=== PATIENT | female | born 1960 | race Caucasian/White ===

== ENCOUNTER 2020-04-24 12:24 | Observation (INO) | payer BC ==
[2020-04-13 15:53] VITALS: BMI 36.8
--- NOTE | 2020-04-23 16:10 | HP ---
HISTORY AND PHYSICAL REASON FOR ADMISSION: Surgery scheduled for 04/24/2020 HISTORY OF PRESENT ILLNESS: Deena Calvo is a 59-year-old patient seen with symptomatic right knee osteoarthritis. We discussed options for treatment. She elected to proceed with right total knee arthroplasty. Consent was obtained. Medical clearance by Dr. Tesfaye. PAST MEDICAL HISTORY: Hypothyroidism, hypertension, asthma. PAST SURGICAL HISTORY: Right knee arthroscopy with ACL reconstruction, hysterectomy, section. MEDICATIONS: Levothyroxine, Plavix, hydrochlorothiazide, oxybutynin, Ultram. ALLERGIES: None. SOCIAL HISTORY: She denies current tobacco use. PHYSICAL EXAMINATION: Evaluation of the right knee: Range of motion is -2 to 115. Tenderness medial joint line. Crepitus medial patellofemoral compartments. Pain with patellofemoral compression. Ligaments stable. Hip rotation without pain. Distal neurovascular exam is intact. RADIOGRAPHS: Right knee radiographs reveal severe osteoarthritic changes. IMPRESSION: 1. Right knee osteoarthritis. 2. Hypertension. 3. Hypothyroidism. 4. Asthma. PLAN: Right total knee arthroplasty. MMODL / IJN: [id number] /
[~2020-04-24 12:24] MED LIST: LIDOCAINE 1% (10MG/ML) FOR IV START INTRADERMA PRN; MIDAZOLAM 2 MG/2 ML VIAL IV PRN; VANCOMYCIN 1,500 MG in SODIUM CHLORIDE 0.9% 250 ML IVPB ONE; fentaNYL (PF) 50 MCG/ML 2 ML AMP IV PRN
[2020-04-24] MEDS: LACTATED RINGERS 1,000 ML IV SCH ×3 (12:48→21:56)
[2020-04-24] MEDS ORDERED: MIDAZOLAM 2 MG/2 ML VIAL IV ONE (13:14)
[2020-04-24] MEDS ORDERED: fentaNYL (PF) 50 MCG/ML 2 ML AMP IV ONE (13:14)
[2020-04-24] MEDS ORDERED: ACETAMINOPHEN TAB 500 MG TAB ONE (13:35)
[2020-04-24] MEDS ORDERED: ACETAMINOPHEN TAB 500 MG TAB PO ONE (13:37)
[2020-04-24] MEDS ORDERED: MELOXICAM 7.5 MG TAB PO ONE (13:37)
--- NOTE | 2020-04-24 14:07 | P.ANPRN ---
Procedure Note - Anesthesia - Nerve Block Performed Right Adductor Canal Infusion Time Out Performed: Yes (1313) Date of Procedure: 04/24/20 Procedure Start Time: 13:14 Procedure Stop Time: 13:24 Location of Patient: PreOp Indication: Acute Post-Operative Pain, Analgesia, Requested by Surgeon Specifically requested for management of pain by DrMichael: Sergio Moon Sedation Type: Sedate with meaningful contact maintained Preparation: Sterile Prep, Sterile Dressing Position: Supine Catheter: Indwelling Needle Types: Ronnie Needle Gauge: 20 Ultrasound used to visualize needle placement: Yes Ultrasound used to observe medication spread: Yes Injectate: 0.5% Ropivacaine (see comment for volume) (0.5% ropivacaine 20 mL with 10 mg dexamethasone) Blood Aspirated: No Pain Paresthesia on Injection Noted: No Resistance on Injection: Normal Image Stored and Saved: Yes
[2020-04-24] MEDS ORDERED: ROPIVACAINE 246.25 MG, EPINEPHrine 0.5 MG, KETOROLAC 30 MG, cloNIDine HCL/PF 80 MCG, WA... MISCELLANE ONE ×5 (15:14)
[2020-04-24] MEDS ORDERED: TRANEXAMIC ACID 1,000 MG/10 ML VIAL ONE (15:19)
[2020-04-24] MEDS ORDERED: MIDAZOLAM 2 MG/2 ML VIAL ONE (15:19)
[2020-04-24] MEDS ORDERED: LIDOCAINE 1% INJ 10MG/ML (20 ML MDV) ONE (15:19)
[2020-04-24] MEDS ORDERED: PROPOFOL 10 MG/ML 20 ML VIAL IV ONE (15:19)
[2020-04-24] MEDS ORDERED: DEXAMETHASONE SOD PHOSPHATE 10 MG/ML 1 ML VIAL ONE (15:19)
[2020-04-24] MEDS ORDERED: SODIUM CHLORIDE 0.9% 100 ML BAG ONE (15:19)
[2020-04-24] MEDS ORDERED: SUCCINYLCHOLINE CHLORIDE 100 MG/5 ML SYR IV ONE (15:19)
[2020-04-24] MEDS ORDERED: fentaNYL (PF) 50 MCG/ML 50 ML VIAL ONE (15:19)
[2020-04-24] MEDS ORDERED: HYDROmorphone (PF) 1 MG/ML ONE (15:19)
[2020-04-24] MEDS ORDERED: ONDANSETRON 4 MG/2 ML VIAL ONE (15:19)
[2020-04-24] MEDS: TRANEXAMIC ACID 1,000 MG in SODIUM CHLORIDE 0.9% 100 ML IVPB SCH (15:30)
[2020-04-24] MEDS: ROPIVACAINE 0.2%-NS ON-Q PUMP 1,090 MG, EMPTY PAIN BALL 1 EACH MISCELLANE PRN ×2 (16:17→18:19)
[2020-04-24] MEDS ORDERED: LACTATED RINGERS 1,000 ML IV ONE (17:20)
[2020-04-24] MEDS ORDERED: NALOXONE 0.4 MG/ML 1 ML VIAL IV PRN (17:32)
[2020-04-24] MEDS ORDERED: HYDROcodone/APAP 5-325MG 1 EACH TAB PO PRN (17:32)
[2020-04-24] MEDS ORDERED: ONDANSETRON 4 MG/2 ML VIAL IVP PRN (17:32)
[2020-04-24] MEDS ORDERED: HYDROmorphone 0.5 MG/0.5 ML SYRINGE IVP PRN ×2 (17:32)
[2020-04-24] MEDS ORDERED: HYDROmorphone 1 MG/ML 1 ML SYRINGE IVP PRN (17:32)
--- NOTE | 2020-04-24 17:32 | P.OP ---
Date of Procedure: 04/24/20 Preoperative Diagnosis: Right knee osteoarthritis Postoperative Diagnosis: Right knee osteoarthritis Procedure(s) Performed: Right total knee arthroplasty Implants: 1. Microport evolution size 4 right cemented femur 2. Microport evolution size 4 right cemented tibial baseplate 3. Microport evolution size 4 right CS 12 mm polyethylene tibial insert 4. Microport evolution 35 mm all polyethylene cemented patella Anesthesia: GETA, regional (Adductor canal catheter), local Surgeon: Sergio Moon Implementation Specialist Payroll #1: Gato Wiseman Estimated Blood Loss (ml): 45 Pathology: other (Bone) Condition: stable Disposition: PACU Indications for Procedure: 59-year-old patient seen with right knee osteoarthritis. After having treatment options discussed, she elected to proceed with total knee arthroplasty. Operative Findings: See description of procedure Description of Procedure: Patient was taken to the operative suite after having an adductor canal catheter placed by the department of anesthesia. Patient underwent a general anesthetic by the department of anesthesia. Patient was given preoperative IV intake antibiotics and TXA. A well-padded tourniquet was placed about the right lower extremity. The lower extremity was then prepped and draped in the normal sterile orthopedic fashion. The extremity was elevated, a tourniquet was insufflated to 300. A standard anterior incision was made sharply through skin. Dissection was taken down through the subcutaneous soft tissues down to the extensor mechanism. A medial arthrotomy was performed, patella was everted and knee was flexed. There was advanced osteoarthritis noted. I introduced my distal intramedullary femoral drill. I then introduced the distal femoral cutting jig. Dante CAPUTO secured the cutting jig with 2 pins. I held retractors in position while Dante CAPUTO performed the distal femoral resection through the guide area we now removed her distal femoral cutting guide. We now placed our 4-in-1 femoral cutting block and positioned and it was secured with 2 pins by Dante CAPUTO while I held the block in position. The distal femoral finishing was now completed. A proximal tibial cutting guide was positioned. I held the guide in the appropriate position with both hands well Dante CAPUTO inserted stabilizing pins into the guide. Proximal tibial cut was made. We now placed a trial femoral component into position, along with an appropriate size tibial tray and insert. We now took the knee through range of motion and had full extension good flexion and good overall soft tissue balance noted. The patella was everted and stabilized with 2 towel clips held by Dante CAPUTO while I performed a flush with patellar quad tendon utilizing a fresh sawblade. We templated the patella, appropriate drill holes were made. An appropriate trial patella was positioned, knee was taken through full range of motion with the patella tracking very nicely. The trial patella was removed. Drill holes were made through the femoral component. All trial components were removed after marking off the appropriate rotation of the tibia. Retractors were now positioned along the proximal tibia. An appropriate keel punch was made with the appropriate size tibial guide by myself on Dante CAPUTO assisted by holding retractors. At this point appropriate size implants were chosen and opened. The joint was irrigated copiously with pulse lavage mechanical irrigation. The posterior capsule was infiltrated with local analgesic. The wound was irrigated with pulse lavage mechanical irrigation. We mixed antibiotic methylmethacrylate. We placed the knee into flexion. We placed multiple retractors assisted by Dante CAPUTO to expose the proximal tibia. Once the methyl methacrylate was ready, the tibial component was cemented into place removing any excess methylmethacrylate form by both myself and Dante CAPUTO. The femoral component was cemented into place removing the removing any excess methylmethacrylate performed by both myself and Dante CAPUTO. We then inserted the appropriate size polyethylene tibial insert. We made sure that it was locked into position. We took the knee into full extension, and then back in a flexion making sure we had removed any excess methylmethacrylate. The patellar component was then cemented down and secured with clamp. Excess methylmethacrylate removed. We kept the knee in full extension, patellar clamp in position until methylmethacrylate had hardened. Once it had hardened the patellar clamp was removed. The knee was taken through full range of motion. The patella tracked nicely. There was good soft tissue balancing. The tourniquet was now released. Additional hemostasis was achieved via electrocautery. A second gram of TXA was given. The wound again was irrigated with pulse lavage mechanical irrigation. The superficial soft tissues were infiltrated local analgesic. The extensor mechanism was repaired with Vicryl. We checked the repair with range of motion and it was stable. The subcutaneous soft tissues were repaired with Vicryl in layers. The skin was approximated with pernio/Dermabond. Sterile dressings were applied followed by loose web roll and Lev bandage. The patient was transferred to a bed, and taken to recovery in stable and satisfactory condition. Dante CAPUTO assisted with this complex procedure.
[2020-04-24] MEDS ORDERED: HYDROmorphone 1 MG/ML 1 ML SYRINGE IVP ONE ×4 (18:15→18:32)
--- NOTE | 2020-04-24 18:36 | XR ---
EXAMINATION TYPE: XR knee limited RT DATE OF EXAM: 04/24/2020 CLINICAL HISTORY: Right knee pain and arthritis status post total knee replacement. TECHNIQUE: Portable AP and crosstable lateral views of the right knee are obtained immediately posto peratively. COMPARISON: Outside right knee x-ray November 24, 2019. FINDINGS: Metallic hardware from total right knee arthroplasty is seen and appears satisfactory in a lignment and position. There is evidence of recent surgery with diffuse subcutaneous gas and soft ti ssue swelling noted. Stable posterior medial metallic plate in the distal femur. IMPRESSION: METALLIC HARDWARE FROM TOTAL RIGHT KNEE ARTHROPLASTY IS SATISFACTORY IN ALIGNMENT.
[2020-04-24] MEDS ORDERED: SENNOSIDES-DOCUSATE SODIUM 1 EACH TAB PO SCH (21:00)
[2020-04-24] MEDS: HYDROcodone/APAP 5-325MG 1 EACH TAB PO PRN (21:04)
[2020-04-24] MEDS: SODIUM CHLORIDE 0.9% 1,000 ML IV SCH (21:56)
[2020-04-25] MEDS: HYDROcodone/APAP 5-325MG 1 EACH TAB PO PRN ×2 (03:51→09:57)
[2020-04-25] MEDS: SODIUM CHLORIDE 0.9% 1,000 ML IV SCH (04:35)
--- NOTE | 2020-04-25 05:56 | P.PN ---
Progress Note - Text Patient was seen at bedside at 540 AM. Patient is postop day 1 from right total knee replacement with adductor canal catheter placed for pain . Ropivacaine 0.2% infusion running at 8 ml per hour. VAS score is 1. Patient denies side effects. Lower extremity sensation and motor function is intact. Patient has ambulated. Dressing clean dry and intact over catheter site
[2020-04-25] MEDS: LACTATED RINGERS 1,000 ML IV SCH (07:33)
[2020-04-25 08:07] VITALS: BP 111/61; PULSE 79; RESP 18; TEMP 98
[2020-04-25] MEDS ORDERED: CLOPIDOGREL 75 MG TAB PO SCH (09:00)
[2020-04-25] MEDS ORDERED: MELOXICAM 7.5 MG TAB PO SCH (09:00)
[2020-04-25 10:17] LABS: Basophils % (A) 0 %; Eosinophils # (A) 0.1 k/uL (0-0.7); Eosinophils % (A) 1 %; HCT 35.4 % (34.0-46.0); HGB 11.6 gm/dL (11.4-16.0); Lymphocytes # (A) 1.4 k/uL (1.0-4.8); Lymphocytes % (A) 12 %; MCHC 32.9 g/dL (31.0-37.0); MCV 88.2 fL (80.0-100.0); Mean Platelet Volume 7.9; Monocytes # (A) 0.6 k/uL (0-1.0); Monocytes % (A) 6 %; Neutrophils # (A) 9.1 k/uL (1.3-7.7); Neutrophils % (A) 80 %; Platelet Count 204 k/uL (150-450); RBC 4.01 m/uL (3.80-5.40); RDW 13.2 % (11.5-15.5); WBC 11.3 k/uL (3.8-10.6)
--- NOTE | 2020-04-25 11:07 | P.PN ---
Subjective Progress Note Date: 04/25/20 Principal diagnosis: Status post right total knee arthroplasty Patient evaluated at bedside, she is resting comfortably. She's done well with therapy. Pain is well-controlled. She has no chest pain or shortness of breath. Objective - Vital Signs Vital signs: Vital Signs Temp 98.0 F 04/25/20 07:00 Pulse 79 04/25/20 07:00 Resp 18 04/25/20 07:00 BP 111/61 04/25/20 07:00 Pulse Ox 97 04/25/20 07:00 Intake & Output 04/24/20 04/25/20 04/25/20 18:59 06:59 18:59 Intake Total 2019 350 Output Total 45 300 Balance 1974 50 Weight 96.6 kg 96.6 kg Intake: IV 2019 Intake, IV Titration 350 Amount Sodium Chloride 0.9% 1, 350 000 ml @ 100 mls/hr IV . Q10H JUANITA Rx#:[id number] Output: Urine 300 Estimated Blood Loss 45 Other: # Voids 2 - Exam Right lower extremity: Incision is clean, dry, and intact. The foam dressing is in good condition. There is minimal soft tissue swelling and ecchymosis surrounding the medial and lateral aspects of the incision. Calf is soft, no tenderness with palpation. Plantar flexion, dorsiflexion, EHL, FHL are intact. Sensory exam to light touch throughout the extremity is intact, dorsal pedis pulses 2+. - Labs CBC & Chem 7: 04/25/20 08:57 Labs: Abnormal Lab Results - Last 24 Hours (Table) 04/25/20 Range/Units 08:57 WBC 11.3 H (3.8-10.6) k/uL Neutrophils # 9.1 H (1.3-7.7) k/uL Assessment and Plan Assessment: status post right total knee arthroplasty Plan: Pain control, plan for discharge home on oral medication Wound care instructions discussed Gi and DVT prophylaxis, she will resume Plavix Medical recommendations home physical therapy and nursing after discharge Discharge planning: Plan for discharge home today Time with Patient: Less than 30
--- NOTE | 2020-04-25 11:09 | P.DS ---
Providers Date of admission: 04/24/2020 Expected date of discharge: 04/25/20 Attending physician: Sergio Moon Primary care physician: Tej Wade [place] Hospital Course: Date of admission: 04/24/2020 Date of discharge: 04/25/2020 Admission diagnosis: Status post right total knee arthroplasty Discharge diagnosis: Same Attending physician: Dr. Moon Surgical procedures: Right total knee arthroplasty Brief history: Patient is a 59-year-old female with a history of progressive primary right knee osteoarthritis. At this point patient has failed conservative treatment measures and has opted to proceed with a elective right total knee arthroplasty. Hospital course: Details of patient's surgery can be found in operative report. Patient tolerated the procedure well and was subsequently transported to orthopedic floor. Patient's orthopeidc and medical care was provided daily. Patient had daily laboratory tests performed for evaluation of overall blood counts. Patient had daily physical therapy to include strengthening range of motion as well as education with walker ambulation. Patient was treated with Lovenox for their postoperative DVT prophylaxis during their inpatient stay. Patient was noted to have a relatively uneventful postoperative course. Patient reported satisfactory pain control with oral pain medications by postoperative day 0. Patient showed satisfactory progress with physical therapy. Patient moved steadily through the program and had no difficulty meeting the goals by postoperative day 1. Given patient's otherwise satisfactory course and having met physical therapy goals, plan is to discharge patient home on postoperative day 1. Discharge condition/disposition: Patient will be discharged home in stable condition. Discharge medications: Instructions are given on resumption of patient's normal daily medications per primary care recommendation, in addition patient will be prescribed [place] 7.5 mg/325 mg. Discharge instructions: 1. Wound care and infection precautions, keep incision dry and covered while showering, no lotions, creams, moisturizers. No soaking, tubs, pools, hottubs. Do not scrub over the incision. 2. Weight-bear as tolerated with walker / cane until follow-up. 3. Ice and elevate when necessary. Do not exceed 20 minutes per hour with ice pack. 4. Utilize compression sleeve until seen at first follow up appointment. 5. Visiting nursing care. 6. Home physical therapy. 7. Pain meds and anticoagulants per prescription. 8. Pain medication has potential to cause constipation. Increase oral fluid and fiber intake. Contact primary care provider if you have not had a bowel movement within 48 hours after discharge 9. No anti-inflammatory medication until discussed at first post operative visit, this including Motrin, Aleve, Mobic, Diclofenac. 10. Follow up in office at 2 weeks postop with Dante Wiseman PA-C 11. Follow up with your primary care doctor 7-10 days after discharge. 12. Contact [facility] with any questions, . Procedures: Right total knee arthroplasty Patient Condition at Discharge: Good Plan - Discharge Summary Discharge Rx Participant: Yes New Discharge Prescriptions: New HYDROcodone/APAP 7.5-325MG [[place] 7.5] 1 - 2 each PO Q6HR PRN #42 tab PRN Reason: Pain No Action Sulfamethox-Tmp 800-160Mg [Bactrim DS 800-160 mg] 1 tab PO BID Mupirocin 2% Oint [Bactroban 2% Oint] 1 applic TOPICAL TID Levalbuterol Hfa Inhaler [Xopenex Hfa Inhaler] 1 puff INHALATION Q6HR PRN PRN Reason: Asthma Multivitamins, Thera [Multivitamin (formulary)] 1 tab PO DAILY Cholecalciferol [Vitamin D3 (25 Mcg = 1000 Iu)] 1,000 unit PO DAILY Oxybutynin Chloride [Oxybutynin Chloride ER] 15 mg PO DAILY Clopidogrel [Plavix] 75 mg PO DAILY traMADol HCL 50 mg PO DAILY hydroCHLOROthiazide 25 mg PO DAILY Levothyroxine Sodium 25 mcg PO QAM Discharge Medication List Cholecalciferol [Vitamin D3 (25 Mcg = 1000 Iu)] 1,000 unit PO DAILY 04/13/20 [History] Clopidogrel [Plavix] 75 mg PO DAILY 04/13/20 [History] Levalbuterol Hfa Inhaler [Xopenex Hfa Inhaler] 1 puff INHALATION Q6HR PRN 04/13/20 [History] Levothyroxine Sodium 25 mcg PO QAM 04/13/20 [History] Multivitamins, Thera [Multivitamin (formulary)] 1 tab PO DAILY 04/13/20 [History] Mupirocin 2% Oint [Bactroban 2% Oint] 1 applic TOPICAL TID 04/13/20 [History] Oxybutynin Chloride [Oxybutynin Chloride ER] 15 mg PO DAILY 04/13/20 [History] Sulfamethox-Tmp 800-160Mg [Bactrim DS 800-160 mg] 1 tab PO BID 04/13/20 [History] hydroCHLOROthiazide 25 mg PO DAILY 04/13/20 [History] traMADol HCL 50 mg PO DAILY 04/13/20 [History] HYDROcodone/APAP 7.5-325MG [[place] 7.5] 1 - 2 each PO Q6HR PRN #42 tab 04/25/20 [Rx] Follow up Appointment(s)/Referral(s): Tej Tesfaye MD [Primary Care Provider] - 1 Week Gato Wiseman PAC [PHYSICIAN CHILD WELFARE SPECIALIST] - 05/17/20 2:10 pm Activity/Diet/Wound Care/Special Instructions: Orthopedic Discharge Instructions: 1. Wound care and infection precautions, keep incision dry and covered while showering, no lotions, creams, moisturizers. No soaking, pools, hot tubs. Do not scrub over incision. 2. Weight-bear as tolerated with walker / cane until follow-up. 3. Ice and elevate when necessary. Do not exceed 20 minutes per hour with ice pack. 4. Utilize compression sleeve until seen at first follow up appointment. 5. Pain meds and anticoagulants per prescription. 6. Pain medication has potential to cause constipation. Increase oral fluid and fiber intake. Contact primary care provider if you have not had a bowel movement within 48 hours after discharge. 7. No anti-inflammatory medication until discussed at first post operative visit, this including Motrin, Aleve, Mobic, Diclofenac. 8. Follow up in office at 2 weeks postop with Dante Wiseman PA-C 9. Follow up with your primary care doctor 7-10 days after discharge. 10. Contact [facility] with any questions, . Okay to remove foam dressing on 05/05/2020 Discharge Disposition: HOME WITH HOME HEALTH SERVICES
[2020-04-25] MEDS ORDERED: LEVOTHYROXINE 25 MCG TAB PO SCH (12:00)
[2020-04-25] MEDS ORDERED: OXYBUTYNIN 15 MG TAB.ER.24 PO SCH (12:00)
[2020-04-25] MEDS ORDERED: CHOLECALCIFEROL 1,000 UNIT TAB PO SCH (12:00)
[2020-04-25] MEDS ORDERED: MUPIROCIN 2% OINT 22 GM TUBE TOPICAL SCH (12:00)
[2020-04-25] MEDS ORDERED: MULTIVITAMINS, THERA 1 EACH TAB PO SCH (12:00)
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
== END 2020-04-25 14:54 | disposition home health service (06) ==
LOC: OR 12:24 → 4SSUR 17:46 → OR 04-25 10:45
PROVIDERS: ADMIT Orthopaedic Surgery; ATTEND Orthopaedic Surgery
DX: M17.11 Unilateral primary osteoarthritis, right knee (principal); E03.9 Hypothyroidism, unspecified; E66.01 Morbid (severe) obesity due to excess calories; F12.90 Cannabis use, unspecified, uncomplicated; F41.9 Anxiety disorder, unspecified; I10 Essential (primary) hypertension; J45.909 Unspecified asthma, uncomplicated; Z68.36 Body mass index [BMI] 36.0-36.9, adult; Z79.02 Long term (current) use of antithrombotics/antiplatelets; Z79.899 Other long term (current) drug therapy; Z80.1 Family history of malignant neoplasm of trachea, bronchus and lung; Z87.891 Personal history of nicotine dependence; Z90.710 Acquired absence of both cervix and uterus; Z79.890 Hormone replacement therapy; Z79.891 Long term (current) use of opiate analgesic; I69.351 Hemiplegia and hemiparesis following cerebral infarction affecting right dominant side; Z86.14 Personal history of Methicillin resistant Staphylococcus aureus infection; Z88.8 Allergy status to other drugs, medicaments and biological substances; D72.829 Elevated white blood cell count, unspecified
CPT/HCPCS: 97110; 97161; 64448; 76942; 85025; 88300; 73560; 27447; G0378; C1776; C1713; J2250; J3370; J1100; J3010 ×2; J2405; J2001; J1170 ×3; J0330; J2704; J2795